=== PATIENT | male | born 1950 | race Caucasian/White ===

== ENCOUNTER 2020-04-26 07:47 | Outpatient (CLI) | payer MEDICARE ==
[2020-04-26] MEDS ORDERED: Magnevist 469MG/ML 20 ML VIAL ONE (14:11)
== END 2020-04-26 07:48 | disposition home or self-care (01) ==
LOC: MRI 07:47
PROVIDERS: ATTEND Internal Medicine Hematology & Oncology
DX: C61 Malignant neoplasm of prostate (principal); C79.51 Secondary malignant neoplasm of bone; R93.7 Abnormal findings on diagnostic imaging of other parts of musculoskeletal system; M47.814 Spondylosis without myelopathy or radiculopathy, thoracic region; I67.82 Cerebral ischemia; J34.1 Cyst and mucocele of nose and nasal sinus
CPT/HCPCS: 70553; 72128; A9579

== ENCOUNTER 2020-06-23 16:05 | Outpatient (CLI) | payer MEDICARE ==
[~2020-06-23 16:05] MED LIST: Iopamidol 370 76% 100 ML VIAL ONE
== END 2020-06-23 16:06 | disposition home or self-care (01) ==
LOC: BICCT 16:05
PROVIDERS: ATTEND Internal Medicine Hematology & Oncology
DX: C61 Malignant neoplasm of prostate (principal); C79.51 Secondary malignant neoplasm of bone; J92.9 Pleural plaque without asbestos
CPT/HCPCS: 71260; Q9967

== ENCOUNTER 2024-10-21 12:30 | Outpatient (CLI) | payer MEDICARE, OTHER | END 2024-10-21 12:31 | disposition home or self-care (01) | LOC: PET 12:30 | PROVIDERS: ATTEND Urology | DX: C61 Malignant neoplasm of prostate (principal) | CPT/HCPCS: 78815; A9595 ==